=== PATIENT | male | born 1975 | race Caucasian/White ===

== ENCOUNTER 2016-10-03 14:08 | Inpatient (IN) | payer OTHER ==
[2016-10-03 16:13] VITALS: BMI 34.0
--- NOTE | 2016-10-03 18:32 | HP ---
Admission ROS [facility] Chief Complaint: I WANT TO GO TO REHAB Allergies/Adverse Reactions: Allergies Allergy/AdvReac Type Severity Reaction Status Date / Time No Known Allergies Allergy Verified 10/03/16 18:28 History of Present Illness: 41 YEARS OLD MALE WITH LONG HISTORY OF COCAINE MARIJUANA NICOTINE DEPENDENCE HAS DIABETES II HYPERTENSION HYPERLIPIDEMIA, GERD S/P LYMPHOMA CANCER, LAST RADIATION 2009 FOLLOW UP WITH ONCOLOGIST, IS ADMITTED TO REHAB Exam Limitations: No Limitations - Ebola screening Have you traveled outside of the country in the last 21 days: No Have you had contact with anyone from an Ebola affected area: No Have you been sick,other than usual withdrawal symptoms: No Do you have a fever: No - Review of Systems Constitutional: Weight Stable EENT: reports: No Symptoms Reported Respiratory: reports: Productive cough (LIGHT BROWNISH) Cardiac: reports: No Symptoms Reported GI: reports: No Symptoms Reported : reports: No Symptoms Reported Musculoskeletal: reports: Back Pain Integumentary: reports: Other (TATTOO FOR RADIATION ON ABDOMEN) Neuro: reports: No Symptoms reported Endocrine: reports: No Symptoms Reported Hematology: reports: No Symptoms Reported Psychiatric: reports: Judgement Intact, Orientated x3, Depressed Other Systems: Reviewed and Negative Patient History - Patient Medical History Hx Anemia: No Hx Asthma: No Hx Chronic Obstructive Pulmonary Disease (COPD): No Hx Cancer: No Hx Cardiac Disorders: No Hx Congestive Heart Failure: No Hx Hypertension: Yes Hx Hypercholesterolemia: Yes Hx Pacemaker: No HX Cerebrovascular Accident: No Hx Seizures: No Hx Dementia: No Hx Diabetes: Yes Hx Gastrointestinal Disorders: Yes Hx Liver Disease: No Hx Genitourinary Disorders: No Hx Sexually Transmitted Disorders: No Hx Renal Disease (ESRD): No Hx Thyroid Disease: No Hx Human Immunodeficiency Virus (HIV): No Hx Hepatitis C: No Hx Depression: No Hx Suicide Attempt: Yes (2006 CUT WRISTS) Hx Bipolar Disorder: Yes Hx Schizophrenia: No - Patient Surgical History Past Surgical History: Yes Hx Neurologic Surgery: No Hx Cataract Extraction: No Hx Cardiac Surgery: No Hx Lung Surgery: No Hx Breast Surgery: No Hx Breast Biopsy: No Hx Abdominal Surgery: No Hx Appendectomy: No Hx Cholecystectomy: No Hx Genitourinary Surgery: No Hx Orthopedic Surgery: No Other Surgical History: RIGHT TESTISE REMOVED 2009 Anesthesia Reaction: No - PPD History Previous Implant?: Yes Documented Results: Negative w/o proof Implanted On Prior [facility] Admission?: No PPD to be Administered?: Yes - Smoking Cessation Smoking history: Current every day smoker Have you smoked in the past 12 months: Yes Aproximately how many cigarettes per day: 6 Cigars Per Day: 0 Hx Chewing Tobacco Use: No Initiated information on smoking cessation: Yes 'Breaking Loose' booklet given: 10/03/16 - Substance & Tx. History Hx Alcohol Use: No Hx Substance Use: Yes Substance Use Type: Cocaine, Marijuana Hx Substance Use Treatment: Yes - Substances Abused Cocaine Route: Inhalation Frequency: Daily Amount used: 80 BAGS Age of first use: 15 Date of Last Use: 10/03/16 Family Disease History - Family Disease History Family Disease History: [place]: Grandparent, Respiratory: Mother (), Brother , Sister, Other: Father () Admission Physical Exam [facility] - Vital Signs Vital Signs: Vital Signs - 24 hr 10/03/16 16:12 Temperature 97.2 F L Pulse Rate 57 L Respiratory 20 Rate Blood Pressure 129/92 - Physical General Appearance: Yes: No Apparent Distress, Appropriately Dressed, Obese HEENTM: Yes: Hearing grossly Normal, Normal ENT Inspection, Normocephalic, Normal Voice Respiratory: Yes: Chest Non-Tender, Lungs Clear, Normal Breath Sounds, No Respiratory Distress, No Accessory Muscle Use Neck: Yes: Supple, Trachea in good position Breast: Yes: Breasts Symetrical Cardiology: Yes: Regular Rhythm, S1, S2, Bradycardia Abdominal: Yes: Non Tender, Soft Genitourinary: Yes: Within Normal Limits Back: Yes: Normal Inspection Musculoskeletal: Yes: full range of Motion, Gait Steady Extremities: Yes: Normal Range of Motion, Non-Tender Neurological: Yes: Fully Oriented, Alert, Motor Strength 5/5, Normal Mood/Affect , Normal Response Integumentary: Yes: Warm Lymphatic: Yes: Within Normal Limits - Diagnostic (1) Nicotine dependence Current Visit: Yes Status: Acute Qualifiers: Nicotine product type: cigarettes Substance use status: in withdrawal Qualified Code(s): F17.213 - Nicotine dependence, cigarettes, with withdrawal (2) Cannabis dependence, uncomplicated Current Visit: Yes Status: Chronic (3) Cocaine dependence, uncomplicated Current Visit: Yes Status: Chronic Cleared for Admission [facility] - Detox or Rehab [facility] Level of Care: Observation Bed Detox Regimen/Protocol: Not Applicable Claeared for Rehab Admission: Yes [facility] Breath Alcohol Content Breath Alcohol Content: 0 Urine Drug Screen - Results Drug Screen Negative: No Urine Drug Screen Results: THC-Marijuana, JACKY-Cocaine
[2016-10-03] MEDS ORDERED: guaiFENesin/D-METHORPHAN HB 10 ML UNIT-DOSE CUPS PO PRN (18:39)
[2016-10-03] MEDS ORDERED: MAGNESIUM CITRATE 300 ML BOTTLE PO PRN (18:39)
[2016-10-03] MEDS ORDERED: P-EPHED 60MG/TRIPROLIDI 2.5MG TABLET PO PRN (18:39)
[2016-10-03] MEDS ORDERED: MENTHOL/PHENOL 1 EACH UD MM PRN (18:39)
[2016-10-03] MEDS ORDERED: LOPERAMIDE HCL 2 MG CAPSULE PO PRN (18:39)
[2016-10-03] MEDS ORDERED: MAGNESIUM HYDROX 2400MG/30ML ORAL SUSPENSION 30 ML CUP PO PRN (18:39)
[2016-10-03] MEDS ORDERED: TUBERCULIN PPD 5 TU/0.1ML VIAL ID ONE (20:37)
[2016-10-03] MEDS: diphenhydrAMINE HCL 50 MG CAPSULE PO PRN (21:10)
[2016-10-03] MEDS: RANITIDINE HCL 150 MG TABLET (FP) PO SCH (21:10)
[2016-10-03] MEDS: THIAMINE HCL 100 MG TABLET (FP) PO SCH (21:10)
[2016-10-03] MEDS: ATORVASTATIN CA 20 MG TABLET (FP) PO SCH (21:10)
[2016-10-03 22:23] LABS: URINE APPEARANCE CLEAR; URINE BILIRUBIN NEGATIVE (NEGATIVE); URINE BLOOD NEGATIVE (NEGATIVE); URINE COLOR YELLOW; URINE GLUCOSE (UA) NEGATIVE (NEGATIVE); URINE KETONE NEGATIVE (NEGATIVE); URINE LEUK ESTERASE NEGATIVE (NEGATIVE); URINE NITRITE NEGATIVE (NEGATIVE); URINE PROTEIN NEGATIVE (NEGATIVE); URINE UROBILINOGEN NEGATIVE E.U./dl (0.2-1.0)
[2016-10-04] MEDS: metFORMIN HCL 500 MG TABLET (FP) PO SCH ×2 (06:16→17:03)
[2016-10-04] MEDS: NICOTINE 14 MG/24 HOURS TOPICAL PATCH TD SCH (09:47)
[2016-10-04] MEDS: PRENATAL VITAMINS W/ FOLIC ACID TABLET (FP) PO SCH (09:48)
[2016-10-04] MEDS: LIDOCAINE 5% TOPICAL PATCH TP SCH (09:48)
[2016-10-04] MEDS: RANITIDINE HCL 150 MG TABLET (FP) PO SCH ×2 (09:48→21:14)
[2016-10-04] MEDS: NICOTINE POLACRILEX 2 MG GUM BC PRN (09:49)
[2016-10-04] MEDS: hydrOXYzine PAMOATE 50 MG CAPSULE (FP) PO PRN ×2 (09:50→21:15)
[2016-10-04 10:05] LABS: MCH 26.5 pg (25.7-33.7); MCHC 32.1 g/dl (32.0-35.9); MEAN CELL VOLUME 82.5 fl (80-96); MEAN PLT VOLUME 8.3 fl (7.5-11.1); PLATELET COUNT 216 K/MM3 (134-434); RDW 14.6 % (11.9-15.9); WHITE BLOOD COUNT 10.4 K/mm3 (4.0-10.0)
[2016-10-04 10:40] LABS: ALBUMIN 3.8 g/dl (3.4-5.0); ALK PHOS 88 U/L (45-117); ANION GAP 8 (8-16); BILIRUBIN,TOTAL 0.5 mg/dL (0.2-1.0); CALCIUM 9.5 mg/dL (8.5-10.1); CO2 29 mmol/L (21-32); COCKROFT - GAULT 157.77; CREATININE 0.9 mg/dL (0.7-1.3); GLUCOSE,RANDOM 109 mg/dL (74-106); SGOT/AST 23 U/L (15-37); SGPT/ALT 40 U/L (12-78); TOT PROT 7.1 g/dl (6.4-8.2)
[2016-10-04] MEDS: ACETAMINOPHEN 325 MG TABLET (FP) PO PRN ×2 (11:30→20:04)
--- NOTE | 2016-10-04 13:12 | HP ---
Psychiatrist Admission - Data Date of interview: 10/04/16 Admission source: [facility] Identifying data: First admission to [address] for this 41 y/o male seeking rehabilitation treatment for cocaine and marijuana dependence.Patient is ,a father of one,currently homeless (family intermediate ),unemployed and supported on SSI benefits. Medical History: Remarkable for diabetes mellitus,hypercholesterolemia,bronchia asthma,hypertension and history of lymphoma (last radiation treatment in 2009) and excision of right testicle (2009). Psychiatric History: Patient admits to a history of one psychiatric hospitalization (2006) at [facility] in [facility].Diagnosed with Major Depressive Disorder with psychotic features (at the time).Mr Sheldon gets his outpatient psychiatric services at [facility] in [facility].Maintained on a regimen of sertraline 50 mg/day and vistaril (dose not recalled).Patient indicates a background of one suicide atttempt via self-mutilation (2006). Physical/Sexual Abuse/Trauma History: Patient denies. Additional Comment: Urine Drug Screen Results: THC-Marijuana, JACKY- Cocaine.Noted. - Smoking Cessation. Smoking history: Current every day smoker. Have you smoked in the past 12 months: Yes. Aproximately how many cigarettes per day: 6. Cigars Per Day: 0. Hx Chewing Tobacco Use: No. Initiated information on smoking cessation: Yes. 'Breaking Loose' booklet given : 10/03/16. - Substance & Tx. History. Hx Alcohol Use: No. Hx Substance Use: Yes. Substance Use Type: Cocaine, Marijuana. Hx Substance Use Treatment: Yes. - Substances Abused. Cocaine. Route: Inhalation. Frequency: Daily. Amount used: 80 BAGS. Age of first use: 15. Date of Last Use: 10/03/16. Confirmed by patient. Vital Signs: Vital Signs - 24 hr 10/03/16 10/04/16 10/04/16 16:12 00:43 03:30 Temperature 97.2 F L Pulse Rate 57 L Respiratory 20 18 16 Rate Blood Pressure 129/92 10/04/16 06:57 Temperature 97.8 F Pulse Rate 71 Respiratory 18 Rate Blood Pressure 145/77 Allergies/Adverse Reactions: Allergies Allergy/AdvReac Type Severity Reaction Status Date / Time No Known Allergies Allergy Verified 10/03/16 18:28 - Substance Abuse/Tx History Hx Alcohol Use: No Hx Substance Use: Yes (cocaine,nicotine and marijuana.) Substance Use Type: Cocaine (onset of use at age 15.Daily expense : 40 dollars.Snorting.Last use was on 10/01/16.), Marijuana (started using at age 16.Usage (50 dollars) is every other day.Last used marijuana on 09/08/16.) Hx Substance Use Treatment: Yes ([facility] in 2014 and [facility] in August 2016.) - Admission Criteria Previous failed treatment: Yes Poor recovery environment: Yes Comorbidities: Yes Lacks judgement: Yes Mental Status Exam - Mental Status Exam Alert and Oriented to: Time, Place, Person Cognitive Function: Good Patient Appearance: Well Groomed (neatly attired) Mood: Hopeful, Euthymic Affect: Appropriate, Normal Range Patient Behavior: Fatigued, Appropriate, Cooperative Speech Pattern: Clear, Appropriate (bilingual) Voice Loudness: Normal Thought Process: Intact, Goal Oriented Thought Disorder: Not Present Hallucinations: Denies Suicidal Ideation: Denies Homicidal Ideation: Denies Insight/Judgement: Fair Sleep: Fair Appetite: Good Muscle strength/Tone: Normal Gait/Station: Normal Psychiatric Findings - Problem List ([place] 1, 2,3) (1) Depressive disorder Current Visit: Yes Status: Chronic Comment: Historical diagnosis. (2) Cocaine dependence Current Visit: Yes Status: Acute (3) Marijuana dependence Current Visit: Yes Status: Acute (4) Nicotine dependence Current Visit: Yes Status: Acute (5) Substance induced mood disorder Current Visit: Yes Status: Suspected - Initial Treatment Plan Initial Treatment Plan: Psychoeducation and support provided.Medications ( verified by pharmacy claims) : zoloft 50 mg po daily and vistaril 50 mg po q 4 h prn.Ordered.Patient is made aware of potential for suicidal ideation/sexual dysfunction from the use of sertraline and drowsiness (hydroxyzine).Mr Cristina is in agreement with this plan of care.Observation.
[2016-10-04] MEDS: SERTRALINE HCL 50 MG TABLET (FP) PO SCH (14:16)
[2016-10-04] MEDS: THIAMINE HCL 100 MG TABLET (FP) PO SCH (21:14)
[2016-10-04] MEDS: ATORVASTATIN CA 20 MG TABLET (FP) PO SCH (21:14)
[2016-10-05] MEDS: metFORMIN HCL 500 MG TABLET (FP) PO SCH ×2 (06:42→16:46)
[2016-10-05] MEDS: PRENATAL VITAMINS W/ FOLIC ACID TABLET (FP) PO SCH (09:46)
[2016-10-05] MEDS: hydrOXYzine PAMOATE 50 MG CAPSULE (FP) PO PRN (09:46)
[2016-10-05] MEDS: ACETAMINOPHEN 325 MG TABLET (FP) PO PRN ×2 (09:46→15:36)
[2016-10-05] MEDS: SERTRALINE HCL 50 MG TABLET (FP) PO SCH (09:46)
[2016-10-05] MEDS: RANITIDINE HCL 150 MG TABLET (FP) PO SCH ×2 (09:46→21:06)
[2016-10-05] MEDS: LIDOCAINE 5% TOPICAL PATCH TP SCH (09:48)
[2016-10-05] MEDS: NICOTINE POLACRILEX 2 MG GUM BC PRN ×2 (09:48→15:37)
[2016-10-05] MEDS: NICOTINE 14 MG/24 HOURS TOPICAL PATCH TD SCH (09:49)
[2016-10-05] MEDS: ALBUTEROL SO4 6.7 GM HFA INHALER IH PRN (12:33)
[2016-10-05] MEDS: diphenhydrAMINE HCL 50 MG CAPSULE PO PRN (21:06)
[2016-10-05] MEDS: THIAMINE HCL 100 MG TABLET (FP) PO SCH (21:06)
[2016-10-05] MEDS: ATORVASTATIN CA 20 MG TABLET (FP) PO SCH (21:06)
[2016-10-06] MEDS: metFORMIN HCL 500 MG TABLET (FP) PO SCH ×2 (06:08→16:43)
--- NOTE | 2016-10-06 09:11 | EKG ---
Test Reason : Blood Pressure : / mmHG Vent. Rate : 056 BPM Atrial Rate : 056 BPM P-R Int : 168 ms QRS Dur : 088 ms QT Int : 458 ms P-R-T Axes : 065 010 030 degrees QTc Int : 441 ms SINUS BRADYCARDIA WITH SINUS ARRHYTHMIA OTHERWISE NORMAL ECG NO PREVIOUS ECGS AVAILABLE Confirmed by AGUEDA PERERA, VIRGINIE ([id number]) on 10/06/2016 9:10:58 AM Referred By: Confirmed By:VIRGINIE ROMEO MD
[2016-10-06] MEDS: LIDOCAINE 5% TOPICAL PATCH TP SCH (09:59)
[2016-10-06] MEDS: RANITIDINE HCL 150 MG TABLET (FP) PO SCH ×2 (10:00→21:12)
[2016-10-06] MEDS: SERTRALINE HCL 50 MG TABLET (FP) PO SCH (10:00)
[2016-10-06] MEDS: NICOTINE 14 MG/24 HOURS TOPICAL PATCH TD SCH (10:00)
[2016-10-06] MEDS: PRENATAL VITAMINS W/ FOLIC ACID TABLET (FP) PO SCH (10:00)
[2016-10-06] MEDS: NICOTINE POLACRILEX 2 MG GUM BC PRN (10:01)
[2016-10-06] MEDS ORDERED: LISINOPRIL 5 MG TABLET (FP) PO ONE (13:02)
[2016-10-06] MEDS: ALBUTEROL SO4 6.7 GM HFA INHALER IH PRN (16:52)
[2016-10-06] MEDS: ATORVASTATIN CA 20 MG TABLET (FP) PO SCH (21:12)
[2016-10-06] MEDS: THIAMINE HCL 100 MG TABLET (FP) PO SCH (21:12)
[2016-10-06] MEDS: ACETAMINOPHEN 325 MG TABLET (FP) PO PRN (21:12)
[2016-10-06] MEDS: diphenhydrAMINE HCL 50 MG CAPSULE PO PRN (21:13)
[2016-10-07] MEDS: metFORMIN HCL 500 MG TABLET (FP) PO SCH ×2 (06:09→16:51)
[2016-10-07] MEDS: RANITIDINE HCL 150 MG TABLET (FP) PO SCH ×2 (10:06→21:14)
[2016-10-07] MEDS: PRENATAL VITAMINS W/ FOLIC ACID TABLET (FP) PO SCH (10:06)
[2016-10-07] MEDS: LISINOPRIL 5 MG TABLET (FP) PO SCH (10:07)
[2016-10-07] MEDS: SERTRALINE HCL 50 MG TABLET (FP) PO SCH (10:07)
[2016-10-07] MEDS: LIDOCAINE 5% TOPICAL PATCH TP SCH (10:07)
[2016-10-07] MEDS: hydrOXYzine PAMOATE 50 MG CAPSULE (FP) PO PRN ×2 (10:08→21:14)
[2016-10-07] MEDS: NICOTINE POLACRILEX 2 MG GUM BC PRN (10:09)
--- NOTE | 2016-10-07 12:22 | PN ---
S Progress Note Note: Attempted to evaluate the patient this am to address anger issues as staff concerns about the patient instability . Undersigned went to the patient's room who was in bed, when asked to come to my office reported very angrily "leave me alone, I don't want to talk to anybody", patient was hostile and repeated "don' t ask me any question, don't want talk'". Cooker Sulfate left the room, will assess the patient later.
[2016-10-07] MEDS: THIAMINE HCL 100 MG TABLET (FP) PO SCH (21:13)
[2016-10-07] MEDS: ATORVASTATIN CA 20 MG TABLET (FP) PO SCH (21:14)
[2016-10-07] MEDS: ACETAMINOPHEN 325 MG TABLET (FP) PO PRN (21:14)
[2016-10-07] MEDS: MAG HYDROX/AL HYDROX/SIMETH 30 ML UNIT-DOSE CUP PO PRN (22:35)
[2016-10-08] MEDS: metFORMIN HCL 500 MG TABLET (FP) PO SCH ×2 (06:14→17:09)
[2016-10-08] MEDS: SERTRALINE HCL 50 MG TABLET (FP) PO SCH (09:38)
[2016-10-08] MEDS: PRENATAL VITAMINS W/ FOLIC ACID TABLET (FP) PO SCH (09:38)
[2016-10-08] MEDS: RANITIDINE HCL 150 MG TABLET (FP) PO SCH ×2 (09:38→17:09)
[2016-10-08] MEDS: LISINOPRIL 5 MG TABLET (FP) PO SCH (09:38)
[2016-10-08] MEDS: LIDOCAINE 5% TOPICAL PATCH TP SCH (09:38)
[2016-10-08] MEDS: hydrOXYzine PAMOATE 50 MG CAPSULE (FP) PO PRN (09:39)
[2016-10-08] MEDS: MAG HYDROX/AL HYDROX/SIMETH 30 ML UNIT-DOSE CUP PO PRN (13:04)
[2016-10-08] MEDS: ALBUTEROL SO4 6.7 GM HFA INHALER IH PRN (17:47)
[2016-10-08] MEDS: THIAMINE HCL 100 MG TABLET (FP) PO SCH (21:07)
[2016-10-08] MEDS: ATORVASTATIN CA 20 MG TABLET (FP) PO SCH (21:07)
[2016-10-08] MEDS: diphenhydrAMINE HCL 50 MG CAPSULE PO PRN (21:07)
[2016-10-09] MEDS: metFORMIN HCL 500 MG TABLET (FP) PO SCH ×2 (06:11→16:48)
[2016-10-09] MEDS: RANITIDINE HCL 150 MG TABLET (FP) PO SCH (06:11)
[2016-10-09] MEDS: LIDOCAINE 5% TOPICAL PATCH TP SCH (10:04)
[2016-10-09] MEDS: LISINOPRIL 5 MG TABLET (FP) PO SCH (10:04)
[2016-10-09] MEDS: PRENATAL VITAMINS W/ FOLIC ACID TABLET (FP) PO SCH (10:04)
[2016-10-09] MEDS: SERTRALINE HCL 50 MG TABLET (FP) PO SCH (10:04)
[2016-10-09] MEDS: NICOTINE POLACRILEX 2 MG GUM BC PRN (10:06)
[2016-10-09] MEDS: hydrOXYzine PAMOATE 50 MG CAPSULE (FP) PO PRN (10:06)
[2016-10-09] MEDS: MAG HYDROX/AL HYDROX/SIMETH 30 ML UNIT-DOSE CUP PO PRN (11:11)
[2016-10-09] MEDS: PANTOPRAZOLE 40 MG TABLET (FP) PO SCH (12:43)
[2016-10-09] MEDS: diphenhydrAMINE HCL 50 MG CAPSULE PO PRN (21:11)
[2016-10-09] MEDS: THIAMINE HCL 100 MG TABLET (FP) PO SCH (21:11)
[2016-10-09] MEDS: ATORVASTATIN CA 20 MG TABLET (FP) PO SCH (21:11)
[2016-10-09] MEDS: ACETAMINOPHEN 325 MG TABLET (FP) PO PRN (21:13)
[2016-10-10] MEDS: metFORMIN HCL 500 MG TABLET (FP) PO SCH ×2 (06:23→16:56)
[2016-10-10] MEDS: PRENATAL VITAMINS W/ FOLIC ACID TABLET (FP) PO SCH (09:46)
[2016-10-10] MEDS: LISINOPRIL 5 MG TABLET (FP) PO SCH (09:47)
[2016-10-10] MEDS: hydrOXYzine PAMOATE 50 MG CAPSULE (FP) PO PRN (09:47)
[2016-10-10] MEDS: SERTRALINE HCL 50 MG TABLET (FP) PO SCH (09:47)
[2016-10-10] MEDS: LIDOCAINE 5% TOPICAL PATCH TP SCH (09:47)
[2016-10-10] MEDS: PANTOPRAZOLE 40 MG TABLET (FP) PO SCH (09:47)
--- NOTE | 2016-10-10 14:14 | PN ---
Psychiatric Progress Note Vital Signs: Vital Signs Period Temp Pulse Resp BP Sys/Kuo Pulse Ox Last 24 Hr 98.4 F 62 16-18 130/82 Date of Session: 10/10/16 Chief Complaint:: progress update HPI: Patient is addressing cocaine, cannabis, nicotine dependence comorbid deperssive disorder, substance induced mood disorder Current Medications: Active Medications Generic Name Dose Route Start Last Admin Trade Name Freq PRN Reason Stop Dose Admin Acetaminophen 650 mg 10/03/16 18:39 10/09/16 21:13 Tylenol - PO 650 mg Q4H PRN Administration PAIN Al Hydroxide/Mg Hydroxide 30 ml 10/03/16 18:39 10/09/16 11:11 Mylanta Oral Suspension - PO 30 ml Q6H PRN Administration DYSPEPSIA Albuterol Sulfate 2 puff 10/03/16 18:41 10/08/16 17:47 Ventolin Hfa Inhaler - IH 2 puff Q4H PRN Administration SHORT OF BREATH/WHEEZING Atorvastatin Calcium 20 mg 10/03/16 22:00 10/09/16 21:11 Lipitor - PO 20 mg HS JOSE D Administration Diphenhydramine HCl 50 mg 10/03/16 18:39 10/09/16 21:11 Benadryl - PO 50 mg HSMR1 PRN Administration INSOMNIA Eucalyptus/Menthol/Phenol/Sorbitol 1 each 10/03/16 18:39 Cepastat Lozenge - MM Q4H PRN SORE THROAT Guaifenesin 10 ml 10/03/16 18:39 Robitussin Dm - PO Q6H PRN COUGH Hydroxyzine Pamoate 50 mg 10/03/16 18:39 10/10/16 09:47 Vistaril - PO 50 mg Q4H PRN Administration AGITATION Lidocaine 1 patch 10/04/16 10:00 10/10/16 09:47 Lidoderm Patch - TP 1 patch DAILY JOSE D Administration Lisinopril 5 mg 10/07/16 10:00 10/10/16 09:47 Prinivil PO 5 mg DAILY JOSE D Administration Loperamide HCl 4 mg 10/03/16 18:39 Imodium - PO Q6H PRN DIARRHEA Magnesium Citrate 300 ml 10/03/16 18:39 Citroma - PO Q48H PRN CONSTIPATION Magnesium Hydroxide 30 ml 10/03/16 18:39 Milk Of Magnesia - PO DAILY PRN CONSTIPATION Metformin HCl 500 mg 10/04/16 07:00 10/10/16 06:23 Glucophage - PO 500 mg BID@0700,1630 JOSE D Administration Nicotine Polacrilex 2 mg 10/03/16 18:39 10/09/16 10:06 Nicorette Gum - BC 2 mg Q2H PRN Administration NICOTINE REPLACEMENT RX Pantoprazole Sodium 40 mg 10/09/16 12:15 10/10/16 09:47 Protonix - PO 40 mg DAILY JOSE D Administration Multivit/Folic Acid/Iron 1 tab 10/04/16 10:00 10/10/16 09:46 Vitamins ([facility]) - PO 1 tab DAILY JOSE D Administration Pseudoephedrine/Triprolidine 1 combo 10/03/16 18:39 Actifed - PO TID PRN NASAL CONGESTION Quetiapine Fumarate 25 mg 10/10/16 22:00 Seroquel - PO HS JOSE D Sertraline HCl 50 mg 10/04/16 13:30 10/10/16 09:47 Zoloft - PO 50 mg DAILY JOSE D Administration Thiamine HCl 100 mg 10/03/16 22:00 10/09/16 21:11 Vitamin B1 - PO 100 mg HS JOSE D Administration Medication(s) Change(s): add Seroquel 25 mg po hs Current Side Effect: No Lab tests ordered: No Lab tests reviewed: Yes Provider note:: Patient reports has a difficult time to contorl his anger, states his mood changes very quick, states he might be very energetic cleaning, moving around feeling elated, then he feels down and depressed. He reports treated in the past with [facility] and was agiteted, Geodone - back spasm. PAtient also discussed his interperonal issues, process with the patient, emotional supports provided, discussed treatment plan with Seroquel(sie-effects benefits discussed as well), patient agreed with the plans, will continue to monitor progress. Total face to face time:: 45 Mental Status Exam - Mental Status Exam Alert and Oriented to: Time, Place, Person Cognitive Function: Good Patient Appearance: Well Groomed Mood: Anxious Affect: Appropriate, Mood Congruent Patient Behavior: Appropriate, Cooperative Speech Pattern: Clear, Appropriate Voice Loudness: Normal Thought Process: Goal Oriented Thought Disorder: Not Present Hallucinations: Denies Suicidal Ideation: Denies Homicidal Ideation: Denies Insight/Judgement: Fair Sleep: Fair Appetite: Fair Muscle strength/Tone: Normal Gait/Station: Normal Psychiatric Treatment Plan - Problem List (1) Cocaine dependence Current Visit: Yes (2) Marijuana dependence Current Visit: Yes (3) Nicotine dependence Current Visit: Yes Qualifiers: Nicotine product type: cigarettes Substance use status: in withdrawal Qualified Code(s): F17.213 - Nicotine dependence, cigarettes, with withdrawal (4) Depressive disorder Current Visit: Yes Comment: Historical diagnosis. (5) Substance induced mood disorder Current Visit: Yes (6) Bipolar 1 disorder Current Visit: Yes
[2016-10-10] MEDS: THIAMINE HCL 100 MG TABLET (FP) PO SCH (21:10)
[2016-10-10] MEDS: ATORVASTATIN CA 20 MG TABLET (FP) PO SCH (21:10)
[2016-10-10] MEDS: QUEtiapine FUMARATE 25 MG TABLET (FP) PO SCH (21:10)
[2016-10-10] MEDS: diphenhydrAMINE HCL 50 MG CAPSULE PO PRN (21:10)
[2016-10-11] MEDS: metFORMIN HCL 500 MG TABLET (FP) PO SCH ×2 (06:14→16:47)
[2016-10-11] MEDS: SERTRALINE HCL 50 MG TABLET (FP) PO SCH (09:48)
[2016-10-11] MEDS: NICOTINE POLACRILEX 2 MG GUM BC PRN (09:48)
[2016-10-11] MEDS: PANTOPRAZOLE 40 MG TABLET (FP) PO SCH (09:48)
[2016-10-11] MEDS: LISINOPRIL 5 MG TABLET (FP) PO SCH (09:48)
[2016-10-11] MEDS: PRENATAL VITAMINS W/ FOLIC ACID TABLET (FP) PO SCH (09:48)
[2016-10-11] MEDS: LIDOCAINE 5% TOPICAL PATCH TP SCH (09:48)
[2016-10-11] MEDS: ATORVASTATIN CA 20 MG TABLET (FP) PO SCH (21:08)
[2016-10-11] MEDS: THIAMINE HCL 100 MG TABLET (FP) PO SCH (21:08)
[2016-10-11] MEDS: QUEtiapine FUMARATE 25 MG TABLET (FP) PO SCH (21:08)
[2016-10-11] MEDS: diphenhydrAMINE HCL 50 MG CAPSULE PO PRN (21:08)
[2016-10-12] MEDS: metFORMIN HCL 500 MG TABLET (FP) PO SCH ×2 (06:11→16:45)
[2016-10-12] MEDS: LISINOPRIL 5 MG TABLET (FP) PO SCH (09:47)
[2016-10-12] MEDS: ALBUTEROL SO4 6.7 GM HFA INHALER IH PRN (09:47)
[2016-10-12] MEDS: PRENATAL VITAMINS W/ FOLIC ACID TABLET (FP) PO SCH (09:47)
[2016-10-12] MEDS: PANTOPRAZOLE 40 MG TABLET (FP) PO SCH (09:47)
[2016-10-12] MEDS: SERTRALINE HCL 50 MG TABLET (FP) PO SCH (09:47)
[2016-10-12] MEDS: LIDOCAINE 5% TOPICAL PATCH TP SCH (09:49)
[2016-10-12] MEDS: ATORVASTATIN CA 20 MG TABLET (FP) PO SCH (21:05)
[2016-10-12] MEDS: HYDROCORTISONE 2.5% TOPICAL CREAM 30 GM TUBE TP SCH (21:05)
[2016-10-12] MEDS: diphenhydrAMINE HCL 50 MG CAPSULE PO PRN (21:05)
[2016-10-12] MEDS: THIAMINE HCL 100 MG TABLET (FP) PO SCH (21:05)
[2016-10-12] MEDS: QUEtiapine FUMARATE 25 MG TABLET (FP) PO SCH (21:05)
[2016-10-12] MEDS: NICOTINE POLACRILEX 2 MG GUM BC PRN (21:06)
[2016-10-13] MEDS: metFORMIN HCL 500 MG TABLET (FP) PO SCH ×2 (06:07→16:55)
[2016-10-13] MEDS: PRENATAL VITAMINS W/ FOLIC ACID TABLET (FP) PO SCH (10:09)
[2016-10-13] MEDS: LISINOPRIL 5 MG TABLET (FP) PO SCH (10:09)
[2016-10-13] MEDS: SERTRALINE HCL 50 MG TABLET (FP) PO SCH (10:09)
[2016-10-13] MEDS: HYDROCORTISONE 2.5% TOPICAL CREAM 30 GM TUBE TP SCH (10:10)
[2016-10-13] MEDS: LIDOCAINE 5% TOPICAL PATCH TP SCH (10:10)
[2016-10-13] MEDS: PANTOPRAZOLE 40 MG TABLET (FP) PO SCH (10:10)
[2016-10-13] MEDS: ACETAMINOPHEN 325 MG TABLET (FP) PO PRN (10:12)
[2016-10-13] MEDS: NICOTINE POLACRILEX 2 MG GUM BC PRN (10:13)
[2016-10-13] MEDS: ALBUTEROL SO4 6.7 GM HFA INHALER IH PRN (19:36)
[2016-10-13] MEDS: ATORVASTATIN CA 20 MG TABLET (FP) PO SCH (21:30)
[2016-10-13] MEDS: QUEtiapine FUMARATE 25 MG TABLET (FP) PO SCH (21:30)
[2016-10-13] MEDS: THIAMINE HCL 100 MG TABLET (FP) PO SCH (21:30)
[2016-10-13] MEDS: diphenhydrAMINE HCL 50 MG CAPSULE PO PRN (21:31)
[2016-10-13] MEDS: HYDROCORTISONE ACETATE 25 MG/SUPP.RECT RC SCH (21:32)
[2016-10-14] MEDS: metFORMIN HCL 500 MG TABLET (FP) PO SCH ×2 (06:43→16:56)
[2016-10-14] MEDS: LIDOCAINE 5% TOPICAL PATCH TP SCH (09:53)
[2016-10-14] MEDS: PANTOPRAZOLE 40 MG TABLET (FP) PO SCH (09:53)
[2016-10-14] MEDS: PRENATAL VITAMINS W/ FOLIC ACID TABLET (FP) PO SCH (09:53)
[2016-10-14] MEDS: LISINOPRIL 5 MG TABLET (FP) PO SCH (09:53)
[2016-10-14] MEDS: SERTRALINE HCL 50 MG TABLET (FP) PO SCH (09:53)
[2016-10-14] MEDS: ATORVASTATIN CA 20 MG TABLET (FP) PO SCH (21:06)
[2016-10-14] MEDS: QUEtiapine FUMARATE 25 MG TABLET (FP) PO SCH (21:06)
[2016-10-14] MEDS: diphenhydrAMINE HCL 50 MG CAPSULE PO PRN (21:06)
[2016-10-14] MEDS: HYDROCORTISONE ACETATE 25 MG/SUPP.RECT RC SCH (21:06)
[2016-10-14] MEDS: THIAMINE HCL 100 MG TABLET (FP) PO SCH (21:06)
[2016-10-15] MEDS: metFORMIN HCL 500 MG TABLET (FP) PO SCH ×2 (06:10→16:45)
[2016-10-15] MEDS: LIDOCAINE 5% TOPICAL PATCH TP SCH (09:49)
[2016-10-15] MEDS: PRENATAL VITAMINS W/ FOLIC ACID TABLET (FP) PO SCH (09:49)
[2016-10-15] MEDS: SERTRALINE HCL 50 MG TABLET (FP) PO SCH (09:49)
[2016-10-15] MEDS: PANTOPRAZOLE 40 MG TABLET (FP) PO SCH (09:49)
[2016-10-15] MEDS: LISINOPRIL 5 MG TABLET (FP) PO SCH (09:49)
[2016-10-15] MEDS: NICOTINE POLACRILEX 2 MG GUM BC PRN ×2 (09:51→21:11)
--- NOTE | 2016-10-15 13:28 | PN ---
Psychiatric Progress Note Vital Signs: Vital Signs Period Temp Pulse Resp BP Sys/Kuo Pulse Ox Last 24 Hr 97.6 F 64-90 16-18 126-129/68-72 Date of Session: 10/15/16 Chief Complaint:: "I want to leave treat HPI: Patient is addressing cocaine, cannabis, nicotine dependence comorbid deperssive disorder, substance induced mood disorder ROS: WNL Current Medications: Active Medications Generic Name Dose Route Start Last Admin Trade Name Freq PRN Reason Stop Dose Admin Acetaminophen 650 mg 10/03/16 18:39 10/13/16 10:12 Tylenol - PO 650 mg Q4H PRN Administration PAIN Al Hydroxide/Mg Hydroxide 30 ml 10/03/16 18:39 10/09/16 11:11 Mylanta Oral Suspension - PO 30 ml Q6H PRN Administration DYSPEPSIA Albuterol Sulfate 2 puff 10/03/16 18:41 10/13/16 19:36 Ventolin Hfa Inhaler - IH 2 puff Q4H PRN Administration SHORT OF BREATH/WHEEZING Atorvastatin Calcium 20 mg 10/03/16 22:00 10/14/16 21:06 Lipitor - PO 20 mg HS JOSE D Administration Diphenhydramine HCl 50 mg 10/03/16 18:39 10/14/16 21:06 Benadryl - PO 50 mg HSMR1 PRN Administration INSOMNIA Eucalyptus/Menthol/Phenol/Sorbitol 1 each 10/03/16 18:39 Cepastat Lozenge - MM Q4H PRN SORE THROAT Guaifenesin 10 ml 10/03/16 18:39 Robitussin Dm - PO Q6H PRN COUGH Hydrocortisone Acetate 25 mg 10/13/16 22:00 10/14/16 21:06 Anusol Hc Suppository - RC 25 mg HS JOSE D Administration Hydroxyzine Pamoate 50 mg 10/03/16 18:39 10/10/16 09:47 Vistaril - PO 50 mg Q4H PRN Administration AGITATION Lidocaine 1 patch 10/04/16 10:00 10/15/16 09:49 Lidoderm Patch - TP 1 patch DAILY JOSE D Administration Lisinopril 5 mg 10/07/16 10:00 10/15/16 09:49 Prinivil PO 5 mg DAILY JOSE D Administration Loperamide HCl 4 mg 10/03/16 18:39 Imodium - PO Q6H PRN DIARRHEA Magnesium Citrate 300 ml 10/03/16 18:39 Citroma - PO Q48H PRN CONSTIPATION Magnesium Hydroxide 30 ml 10/03/16 18:39 Milk Of Magnesia - PO DAILY PRN CONSTIPATION Metformin HCl 500 mg 10/04/16 07:00 10/15/16 06:10 Glucophage - PO 500 mg BID@0700,1630 JOSE D Administration Nicotine Polacrilex 2 mg 10/03/16 18:39 10/15/16 09:51 Nicorette Gum - BC 2 mg Q2H PRN Administration NICOTINE REPLACEMENT RX Pantoprazole Sodium 40 mg 10/09/16 12:15 10/15/16 09:49 Protonix - PO 40 mg DAILY JOSE D Administration Multivit/Folic Acid/Iron 1 tab 10/04/16 10:00 10/15/16 09:49 Vitamins ([facility]) - PO 1 tab DAILY JOSE D Administration Pseudoephedrine/Triprolidine 1 combo 10/03/16 18:39 Actifed - PO TID PRN NASAL CONGESTION Quetiapine Fumarate 25 mg 10/10/16 22:00 10/14/16 21:06 Seroquel - PO 25 mg HS JOSE D Administration Sertraline HCl 50 mg 10/04/16 13:30 10/15/16 09:49 Zoloft - PO 50 mg DAILY JOSE D Administration Thiamine HCl 100 mg 10/03/16 22:00 10/14/16 21:06 Vitamin B1 - PO 100 mg HS JOSE D Administration Medication(s) Change(s): add Belsomra Current Side Effect: No Lab tests ordered: No Lab tests reviewed: Yes Provider note:: Patient reports that he wants to leave this treatment now, he states he feels "looked out", he states he feels anxious and having anger outbursts and he feels very uncomfortable, thinks it's better to leave now. Patient was encouraged to stay and continue his treatment, recommended to take PRN medications, reach out the staff when feels he needs to vent, patient reported he will stay in the treatment, continue to monitor progress. Total face to face time:: 30 Mental Status Exam - Mental Status Exam Alert and Oriented to: Time, Place, Person Cognitive Function: Grossly Intact Patient Appearance: Well Groomed Mood: Anxious, Irritable Affect: Mood Congruent Patient Behavior: Restless, Cooperative Speech Pattern: Clear, Appropriate Voice Loudness: Normal Thought Process: Intact, Goal Oriented Thought Disorder: Not Present Hallucinations: Denies Suicidal Ideation: Denies Homicidal Ideation: Denies Insight/Judgement: Fair Sleep: Fair Appetite: Fair Muscle strength/Tone: Normal Gait/Station: Normal Psychiatric Treatment Plan - Problem List (1) Cocaine dependence Current Visit: Yes (2) Marijuana dependence Current Visit: Yes (3) Nicotine dependence Current Visit: Yes Qualifiers: Nicotine product type: cigarettes Substance use status: in withdrawal Qualified Code(s): F17.213 - Nicotine dependence, cigarettes, with withdrawal (4) Depressive disorder Current Visit: Yes Comment: Historical diagnosis. (5) Substance induced mood disorder Current Visit: Yes (6) Bipolar 1 disorder Current Visit: Yes
[2016-10-15] MEDS: HYDROCORTISONE ACETATE 25 MG/SUPP.RECT RC SCH (21:10)
[2016-10-15] MEDS: THIAMINE HCL 100 MG TABLET (FP) PO SCH (21:10)
[2016-10-15] MEDS: diphenhydrAMINE HCL 50 MG CAPSULE PO PRN (21:10)
[2016-10-15] MEDS: QUEtiapine FUMARATE 25 MG TABLET (FP) PO SCH (21:10)
[2016-10-15] MEDS: ATORVASTATIN CA 20 MG TABLET (FP) PO SCH (21:10)
[2016-10-16] MEDS: metFORMIN HCL 500 MG TABLET (FP) PO SCH ×2 (06:12→16:55)
[2016-10-16] MEDS: SERTRALINE HCL 50 MG TABLET (FP) PO SCH (10:02)
[2016-10-16] MEDS: LIDOCAINE 5% TOPICAL PATCH TP SCH (10:02)
[2016-10-16] MEDS: PRENATAL VITAMINS W/ FOLIC ACID TABLET (FP) PO SCH (10:02)
[2016-10-16] MEDS: LISINOPRIL 5 MG TABLET (FP) PO SCH (10:03)
[2016-10-16] MEDS: PANTOPRAZOLE 40 MG TABLET (FP) PO SCH (10:04)
[2016-10-16] MEDS: NICOTINE POLACRILEX 2 MG GUM BC PRN (10:05)
[2016-10-16] MEDS: diphenhydrAMINE HCL 50 MG CAPSULE PO PRN (21:08)
[2016-10-16] MEDS: ATORVASTATIN CA 20 MG TABLET (FP) PO SCH (21:08)
[2016-10-16] MEDS: THIAMINE HCL 100 MG TABLET (FP) PO SCH (21:08)
[2016-10-16] MEDS: QUEtiapine FUMARATE 25 MG TABLET (FP) PO SCH (21:08)
[2016-10-16] MEDS: HYDROCORTISONE ACETATE 25 MG/SUPP.RECT RC SCH (21:09)
[2016-10-17] MEDS: metFORMIN HCL 500 MG TABLET (FP) PO SCH ×2 (06:13→16:31)
[2016-10-17] MEDS: PRENATAL VITAMINS W/ FOLIC ACID TABLET (FP) PO SCH (09:50)
[2016-10-17] MEDS: LIDOCAINE 5% TOPICAL PATCH TP SCH (09:50)
[2016-10-17] MEDS: PANTOPRAZOLE 40 MG TABLET (FP) PO SCH (09:50)
[2016-10-17] MEDS: SERTRALINE HCL 50 MG TABLET (FP) PO SCH (09:50)
[2016-10-17] MEDS: NICOTINE POLACRILEX 2 MG GUM BC PRN (09:50)
[2016-10-17] MEDS: LISINOPRIL 5 MG TABLET (FP) PO SCH (09:50)
[2016-10-17] MEDS: MAG HYDROX/AL HYDROX/SIMETH 30 ML UNIT-DOSE CUP PO PRN (18:01)
[2016-10-17] MEDS: HYDROCORTISONE ACETATE 25 MG/SUPP.RECT RC SCH (21:10)
[2016-10-17] MEDS: diphenhydrAMINE HCL 50 MG CAPSULE PO PRN (21:10)
[2016-10-17] MEDS: QUEtiapine FUMARATE 25 MG TABLET (FP) PO SCH (21:10)
[2016-10-17] MEDS: THIAMINE HCL 100 MG TABLET (FP) PO SCH (21:10)
[2016-10-17] MEDS: ATORVASTATIN CA 20 MG TABLET (FP) PO SCH (21:10)
[2016-10-18] MEDS: metFORMIN HCL 500 MG TABLET (FP) PO SCH ×2 (06:13→16:43)
[2016-10-18] MEDS: LIDOCAINE 5% TOPICAL PATCH TP SCH (09:43)
[2016-10-18] MEDS: PANTOPRAZOLE 40 MG TABLET (FP) PO SCH (09:43)
[2016-10-18] MEDS: SERTRALINE HCL 50 MG TABLET (FP) PO SCH (09:43)
[2016-10-18] MEDS: LISINOPRIL 5 MG TABLET (FP) PO SCH (09:43)
[2016-10-18] MEDS: PRENATAL VITAMINS W/ FOLIC ACID TABLET (FP) PO SCH (09:44)
[2016-10-18] MEDS: MAG HYDROX/AL HYDROX/SIMETH 30 ML UNIT-DOSE CUP PO PRN (12:26)
[2016-10-18] MEDS: HYDROCORTISONE ACETATE 25 MG/SUPP.RECT RC SCH (21:12)
[2016-10-18] MEDS: ATORVASTATIN CA 20 MG TABLET (FP) PO SCH (21:12)
[2016-10-18] MEDS: diphenhydrAMINE HCL 50 MG CAPSULE PO PRN (21:12)
[2016-10-18] MEDS: THIAMINE HCL 100 MG TABLET (FP) PO SCH (21:12)
[2016-10-18] MEDS: QUEtiapine FUMARATE 25 MG TABLET (FP) PO SCH (21:12)
[2016-10-19] MEDS: metFORMIN HCL 500 MG TABLET (FP) PO SCH ×2 (06:26→17:21)
[2016-10-19] MEDS: PANTOPRAZOLE 40 MG TABLET (FP) PO SCH (09:48)
[2016-10-19] MEDS: LIDOCAINE 5% TOPICAL PATCH TP SCH (09:48)
[2016-10-19] MEDS: PRENATAL VITAMINS W/ FOLIC ACID TABLET (FP) PO SCH (09:48)
[2016-10-19] MEDS: SERTRALINE HCL 50 MG TABLET (FP) PO SCH (09:48)
[2016-10-19] MEDS: LISINOPRIL 5 MG TABLET (FP) PO SCH (09:48)
[2016-10-19] MEDS: hydrOXYzine PAMOATE 50 MG CAPSULE (FP) PO PRN (09:49)
[2016-10-19] MEDS: NICOTINE POLACRILEX 2 MG GUM BC PRN (09:50)
[2016-10-19] MEDS: MAG HYDROX/AL HYDROX/SIMETH 30 ML UNIT-DOSE CUP PO PRN (12:47)
[2016-10-19] MEDS: HYDROCORTISONE ACETATE 25 MG/SUPP.RECT RC SCH (21:09)
[2016-10-19] MEDS: THIAMINE HCL 100 MG TABLET (FP) PO SCH (21:09)
[2016-10-19] MEDS: QUEtiapine FUMARATE 25 MG TABLET (FP) PO SCH (21:09)
[2016-10-19] MEDS: diphenhydrAMINE HCL 50 MG CAPSULE PO PRN (21:09)
[2016-10-19] MEDS: ATORVASTATIN CA 20 MG TABLET (FP) PO SCH (21:09)
[2016-10-20] MEDS: metFORMIN HCL 500 MG TABLET (FP) PO SCH ×2 (06:30→16:34)
[2016-10-20] MEDS: LISINOPRIL 5 MG TABLET (FP) PO SCH (09:49)
[2016-10-20] MEDS: LIDOCAINE 5% TOPICAL PATCH TP SCH (09:49)
[2016-10-20] MEDS: SERTRALINE HCL 50 MG TABLET (FP) PO SCH (09:49)
[2016-10-20] MEDS: PRENATAL VITAMINS W/ FOLIC ACID TABLET (FP) PO SCH (09:49)
[2016-10-20] MEDS: PANTOPRAZOLE 40 MG TABLET (FP) PO SCH (09:49)
[2016-10-20] MEDS: NICOTINE POLACRILEX 2 MG GUM BC PRN (09:50)
[2016-10-20] MEDS: hydrOXYzine PAMOATE 50 MG CAPSULE (FP) PO PRN (09:51)
[2016-10-20] MEDS: QUEtiapine FUMARATE 25 MG TABLET (FP) PO SCH (21:12)
[2016-10-20] MEDS: THIAMINE HCL 100 MG TABLET (FP) PO SCH (21:12)
[2016-10-20] MEDS: ATORVASTATIN CA 20 MG TABLET (FP) PO SCH (21:12)
[2016-10-20] MEDS: HYDROCORTISONE ACETATE 25 MG/SUPP.RECT RC SCH (21:12)
[2016-10-20] MEDS: diphenhydrAMINE HCL 50 MG CAPSULE PO PRN (21:12)
[2016-10-21] MEDS: metFORMIN HCL 500 MG TABLET (FP) PO SCH ×2 (06:06→16:47)
[2016-10-21] MEDS: MAG HYDROX/AL HYDROX/SIMETH 30 ML UNIT-DOSE CUP PO PRN ×2 (06:47→18:33)
[2016-10-21] MEDS: SERTRALINE HCL 50 MG TABLET (FP) PO SCH (09:48)
[2016-10-21] MEDS: LISINOPRIL 5 MG TABLET (FP) PO SCH (09:48)
[2016-10-21] MEDS: PRENATAL VITAMINS W/ FOLIC ACID TABLET (FP) PO SCH (09:48)
[2016-10-21] MEDS: PANTOPRAZOLE 40 MG TABLET (FP) PO SCH (09:48)
[2016-10-21] MEDS: LIDOCAINE 5% TOPICAL PATCH TP SCH (09:48)
[2016-10-21] MEDS: hydrOXYzine PAMOATE 50 MG CAPSULE (FP) PO PRN (09:50)
[2016-10-21] MEDS: QUEtiapine FUMARATE 25 MG TABLET (FP) PO SCH (21:05)
[2016-10-21] MEDS: ATORVASTATIN CA 20 MG TABLET (FP) PO SCH (21:05)
[2016-10-21] MEDS: THIAMINE HCL 100 MG TABLET (FP) PO SCH (21:05)
[2016-10-21] MEDS: diphenhydrAMINE HCL 50 MG CAPSULE PO PRN (21:05)
[2016-10-21] MEDS: HYDROCORTISONE ACETATE 25 MG/SUPP.RECT RC SCH (21:05)
[2016-10-22] MEDS: metFORMIN HCL 500 MG TABLET (FP) PO SCH ×2 (06:21→16:54)
[2016-10-22] MEDS: MAG HYDROX/AL HYDROX/SIMETH 30 ML UNIT-DOSE CUP PO PRN (08:38)
[2016-10-22] MEDS: LIDOCAINE 5% TOPICAL PATCH TP SCH (09:50)
[2016-10-22] MEDS: LISINOPRIL 5 MG TABLET (FP) PO SCH (09:50)
[2016-10-22] MEDS: PRENATAL VITAMINS W/ FOLIC ACID TABLET (FP) PO SCH (09:50)
[2016-10-22] MEDS: SERTRALINE HCL 50 MG TABLET (FP) PO SCH (09:50)
[2016-10-22] MEDS: PANTOPRAZOLE 40 MG TABLET (FP) PO SCH (09:50)
[2016-10-22] MEDS: diphenhydrAMINE HCL 50 MG CAPSULE PO PRN (21:07)
[2016-10-22] MEDS: ATORVASTATIN CA 20 MG TABLET (FP) PO SCH (21:07)
[2016-10-22] MEDS: THIAMINE HCL 100 MG TABLET (FP) PO SCH (21:07)
[2016-10-22] MEDS: QUEtiapine FUMARATE 25 MG TABLET (FP) PO SCH (21:08)
[2016-10-22] MEDS: HYDROCORTISONE ACETATE 25 MG/SUPP.RECT RC SCH (21:08)
[2016-10-23] MEDS: metFORMIN HCL 500 MG TABLET (FP) PO SCH ×2 (06:14→16:35)
[2016-10-23] MEDS: SERTRALINE HCL 50 MG TABLET (FP) PO SCH (09:37)
[2016-10-23] MEDS: PRENATAL VITAMINS W/ FOLIC ACID TABLET (FP) PO SCH (09:37)
[2016-10-23] MEDS: LISINOPRIL 5 MG TABLET (FP) PO SCH (09:37)
[2016-10-23] MEDS: LIDOCAINE 5% TOPICAL PATCH TP SCH (09:37)
[2016-10-23] MEDS: PANTOPRAZOLE 40 MG TABLET (FP) PO SCH (09:37)
--- NOTE | 2016-10-23 19:04 | PN ---
Psychiatric Progress Note Vital Signs: Vital Signs Period Temp Pulse Resp BP Sys/Kuo Pulse Ox Last 24 Hr 97.9 F 80-102 16-18 132-141/76-77 Date of Session: 10/23/16 Chief Complaint:: Discharge Note HPI: Patient addressing Cocaine and Cannabis Dependence comorbid with Nicotine Dependence and Bipolar Disorder Current Medications: Active Medications Generic Name Dose Route Start Last Admin Trade Name Freq PRN Reason Stop Dose Admin Acetaminophen 650 mg 10/03/16 18:39 10/13/16 10:12 Tylenol - PO 650 mg Q4H PRN Administration PAIN Al Hydroxide/Mg Hydroxide 30 ml 10/03/16 18:39 10/22/16 08:38 Mylanta Oral Suspension - PO 30 ml Q6H PRN Administration DYSPEPSIA Albuterol Sulfate 2 puff 10/03/16 18:41 10/13/16 19:36 Ventolin Hfa Inhaler - IH 2 puff Q4H PRN Administration SHORT OF BREATH/WHEEZING Atorvastatin Calcium 20 mg 10/03/16 22:00 10/22/16 21:07 Lipitor - PO 20 mg HS JOSE D Administration Diphenhydramine HCl 50 mg 10/03/16 18:39 10/22/16 21:07 Benadryl - PO 50 mg HSMR1 PRN Administration INSOMNIA Eucalyptus/Menthol/Phenol/Sorbitol 1 each 10/03/16 18:39 Cepastat Lozenge - MM Q4H PRN SORE THROAT Guaifenesin 10 ml 10/03/16 18:39 Robitussin Dm - PO Q6H PRN COUGH Hydrocortisone Acetate 25 mg 10/13/16 22:00 10/22/16 21:08 Anusol Hc Suppository - RC 25 mg HS JOSE D Administration Hydroxyzine Pamoate 50 mg 10/03/16 18:39 10/21/16 09:50 Vistaril - PO 50 mg Q4H PRN Administration AGITATION Lidocaine 1 patch 10/04/16 10:00 10/23/16 09:37 Lidoderm Patch - TP 1 patch DAILY JOSE D Administration Lisinopril 5 mg 10/07/16 10:00 10/23/16 09:37 Prinivil PO 5 mg DAILY JOSE D Administration Loperamide HCl 4 mg 10/03/16 18:39 Imodium - PO Q6H PRN DIARRHEA Magnesium Citrate 300 ml 10/03/16 18:39 Citroma - PO Q48H PRN CONSTIPATION Magnesium Hydroxide 30 ml 10/03/16 18:39 Milk Of Magnesia - PO DAILY PRN CONSTIPATION Metformin HCl 500 mg 10/04/16 07:00 10/23/16 16:35 Glucophage - PO 500 mg BID@0700,1630 JOSE D Administration Nicotine Polacrilex 2 mg 10/03/16 18:39 10/20/16 09:50 Nicorette Gum - BC 2 mg Q2H PRN Administration NICOTINE REPLACEMENT RX Pantoprazole Sodium 40 mg 10/09/16 12:15 10/23/16 09:37 Protonix - PO 40 mg DAILY JOSE D Administration Multivit/Folic Acid/Iron 1 tab 10/04/16 10:00 10/23/16 09:37 Vitamins ([facility]) - PO 1 tab DAILY JOSE D Administration Pseudoephedrine/Triprolidine 1 combo 10/03/16 18:39 Actifed - PO TID PRN NASAL CONGESTION Quetiapine Fumarate 25 mg 10/10/16 22:00 10/22/16 21:08 Seroquel - PO 25 mg HS JOSE D Administration Sertraline HCl 50 mg 10/04/16 13:30 10/23/16 09:37 Zoloft - PO 50 mg DAILY JOSE D Administration Thiamine HCl 100 mg 10/03/16 22:00 10/22/16 21:07 Vitamin B1 - PO 100 mg HS JOSE D Administration Current Side Effect: No Lab tests ordered: Yes Lab tests reviewed: Yes Provider note:: Patient will complete this program on 10/24/16. He has met his treatment goals and will continue to address his issues at outpatient program at [facility] at [address] [place] [address]. He verbalized understanding of the negative consequences of his addiction and from his participation in this program, he has learned how to deal with his anger which accordingto him is the pitfall of him using. He said he also learned patience and understanding. He responded well to Zoloft 50 mg po daily and Seroquel 25 mg po HS. Scripts for 30 days supply of these medications will be electronically transmitted to [facility] at [address] [place] [id number]. He is stable for discharge on 10/24/16 Total face to face time:: 35 Mental Status Exam - Mental Status Exam Alert and Oriented to: Time, Place, Person Cognitive Function: Fair Mood: Hopeful, Euthymic Affect: Appropriate Patient Behavior: Cooperative Speech Pattern: Clear Voice Loudness: Normal Thought Process: Intact Thought Disorder: Not Present Hallucinations: Denies Suicidal Ideation: Denies Homicidal Ideation: Denies Insight/Judgement: Fair Sleep: Fair Appetite: Good Muscle strength/Tone: Normal Gait/Station: Normal Psychiatric Treatment Plan - Problem List (1) Cocaine dependence Current Visit: Yes (2) Cannabis dependence Current Visit: Yes (3) Nicotine dependence Current Visit: Yes Qualifiers: Nicotine product type: cigarettes Substance use status: in withdrawal Qualified Code(s): F17.213 - Nicotine dependence, cigarettes, with withdrawal (4) Bipolar 1 disorder Current Visit: Yes Initial treatment plan: Patient will be discharged tomorrow and referred to [facility] in [place]
[2016-10-23] MEDS: ATORVASTATIN CA 20 MG TABLET (FP) PO SCH (21:05)
[2016-10-23] MEDS: QUEtiapine FUMARATE 25 MG TABLET (FP) PO SCH (21:05)
[2016-10-23] MEDS: HYDROCORTISONE ACETATE 25 MG/SUPP.RECT RC SCH (21:06)
[2016-10-23] MEDS: diphenhydrAMINE HCL 50 MG CAPSULE PO PRN (21:06)
[2016-10-23] MEDS: THIAMINE HCL 100 MG TABLET (FP) PO SCH (21:06)
[2016-10-24] MEDS: metFORMIN HCL 500 MG TABLET (FP) PO SCH (06:24)
[2016-10-24 06:32] VITALS: TEMP 98.3
[2016-10-24 09:31] VITALS: BP 141/85; PULSE 83
[2016-10-24] MEDS: PRENATAL VITAMINS W/ FOLIC ACID TABLET (FP) PO SCH (09:48)
[2016-10-24] MEDS: SERTRALINE HCL 50 MG TABLET (FP) PO SCH (09:48)
[2016-10-24] MEDS: LISINOPRIL 5 MG TABLET (FP) PO SCH (09:48)
[2016-10-24] MEDS: PANTOPRAZOLE 40 MG TABLET (FP) PO SCH (09:48)
[2016-10-24] MEDS: LIDOCAINE 5% TOPICAL PATCH TP SCH (09:48)
== END 2016-10-24 10:45 | disposition home or self-care (01) | DRG 772 ==
LOC: YASAS 14:08 → Y5N 19:00
PROVIDERS: ADMIT Psychiatry & Neurology Psychiatry; ATTEND Psychiatry & Neurology Psychiatry
PROC: HZ42ZZZ Group Counseling for Substance Abuse Treatment, Cognitive-Behavioral (ICD-10-PCS; principal; 2016-10-24)
DX: F14.20 Cocaine dependence, uncomplicated (principal); F12.20 Cannabis dependence, uncomplicated; F17.213 Nicotine dependence, cigarettes, with withdrawal; F31.9 Bipolar disorder, unspecified; F39 Unspecified mood [affective] disorder; F19.24 Other psychoactive substance dependence with psychoactive substance-induced mood disorder; E11.9 Type 2 diabetes mellitus without complications; Z79.84 Long term (current) use of oral hypoglycemic drugs; I10 Essential (primary) hypertension; E78.5 Hyperlipidemia, unspecified
CPT/HCPCS: 36415; 80053; 81003; 85027; 86593; 93005; 93010